=== PATIENT | female | born 1945 | race Caucasian/White ===

== ENCOUNTER 2024-07-21 19:10 | Emergency (ER) | payer OTHER, MEDICARE ==
[2024-07-21 19:19] VITALS: BP 165/85; PULSE 85; RESP 18; TEMP 98.4; BMI 19.5
[2024-07-21] MEDS ORDERED: LIDOCAINE 1%/EPI 1:100000 (20 ML MULTI DOSE VIAL) ONE (22:11)
[2024-07-21] MEDS: LIDOCAINE 2%/EPINEPHRINE 1:100000 (50 ML MD VIAL) INF ONE (22:20)
[2024-07-21] MEDS: LIDOCAINE 1%/EPI 1:100000 (50 ML MULTI DOSE VIAL) INF ONE (22:20)
== END 2024-07-22 00:24 | disposition home or self-care (01) ==
LOC: JER 19:10
DX: S01.81XA Laceration without foreign body of other part of head, initial encounter (principal); S69.91XA Unspecified injury of right wrist, hand and finger(s), initial encounter; W01.0XXA Fall on same level from slipping, tripping and stumbling without subsequent striking against object, initial encounter; Y92.410 Unspecified street and highway as the place of occurrence of the external cause
CPT/HCPCS: 70450-TC; 72125-TC; 72128-TC; 73110-TC-RT-FY; 73130-TC-RT-FY; 99284-25